=== PATIENT | female | born 1965 | race Caucasian/White ===

== ENCOUNTER 2019-05-11 10:40 | Outpatient (CLI) | payer OTHER, SELFPAY ==
--- NOTE | ~2019-05-11 | MM_ITS ---
EXAMINATION: MM screening [facility] BI w batool HISTORY: Screening mammogram TECHNIQUE: Craniocaudal and mediolateral oblique 3-D tomosynthesis images were obtained and synthetic 2-D images were generated. CAD analysis was submitted and interpreted. COMPARISON: 11/29/2016, 05/09/2015, 04/15/2015 BREAST PARENCHYMAL COMPOSITION: The breasts are extremely dense, which lowers the sensitivity of mamm ography. FINDINGS: There is no evidence of suspicious mass, calcification, or architectural distortion to sugg est malignancy in either breast. There has been no suspicious interval change. IMPRESSION: 1. No mammographic evidence of malignancy. 2. Recommend routine screening mammography in one year. BI-RADS Category 1: Negative Reviewed, dictated and finalized at location A. TH MANAGEMENT CONSULTANT
== END 2019-05-11 10:41 | disposition home or self-care (01) ==
LOC: ANHIMG 10:42
PROVIDERS: PCP Family Medicine; Visit Provider Obstetrics & Gynecology
DX: Z12.31 Encounter for screening mammogram for malignant neoplasm of breast (principal)
CPT/HCPCS: 77063; 77067

== ENCOUNTER 2019-10-21 17:40 | Emergency (ER) | payer OTHER, SELFPAY ==
--- NOTE | 2019-10-21 17:52 | ED.BACK ---
HPI - Back Pain/Injury General Chief Complaint: Abdominal Pain Stated Complaint: abd/back pain Source: patient and RN notes reviewed Mode of arrival: ambulatory Limitations: no limitations History of Present Illness HPI Narrative: The patient a non-smoker/occasional social drinker, presents with pain and emesis. Patient indicates a shorter, 6hr history of first epigastric pain associated with vomiting. This is progressed to have mostly right flank/ back pain pain now, that is mild to moderate, worse with rest, better with activity-and so colicky. No fever, frequency/hematuria/urgency/dysuria, no cough, shortness of breath, travel history, loss of taste/smell. Urinalysis remarkable for only mild/1+ microscopic hematuria. Related Data Home Medications Medication Instructions Recorded Confirmed tacrolimus 1 applic TOPICAL BID 10/21/19 10/21/19 Allergies Allergy/AdvReac Type Severity Reaction Status Date / Time lisinopril Allergy Unknown Angioedema Verified 11/07/17 17:09 Sulfa (Sulfonamide Allergy Unknown Verified 10/08/09 07:50 Antibiotics) Review of Systems Review of Systems: Narrative: General/Constitutional: No weight loss,fever Eyes: N0: Redness,discharge Ears/Nose/Throat: No: Epistaxis,ear discharge Respiratory: Denies: Hemoptysis Gastrointestinal: No Bleeding-rectal, positive vomiting Skin: No Lumps, eruption Neurologic: No Focal Weakness,Sz Hematologic: Denies: Petechiae/Purpura Psychiatric: No: Suicida ideationl All Other Systems: Reviewed and Negative PMFSH Social History Social History Smoking status: Never smoker Alcohol intake: current Drinks per week: 7 Gender identity (if verbalized by the patient): Female Comments At time of signature, agree with nursing past medical, surgical, social and family history. There is no relevant family history pertinent to the presenting complaint Exam Narrative: Exam Narrative: General Appearance: Well nourished, mild pain EYE: PERRLA, Conjunctiva clear Ears: External ear normal Nose: Normal nose Mouth/Throat: Normal appearing, Normal lips Neck: Supple Respiratory: Airway patent, No respiratory distress Cardiovascular: RRR Abdomen: Soft, R flank and RUQ tender, No massess, No organomegaly (no rebound/ surgical signs), Hyperactive bowel sounds Musculoskeletal: Full ROM Skin: Warm, Dry Neurological: A&O x3, CN II-X intact Psychiatric: Normal mood, Normal affect Course Course Emergency Course: MDM Med Decision Making DATA REVIEWED LAB: ordered & reviewed MH RECORDS: reviewed DISCUSSED: with another provider TEST : personally over-read RISKS of M &M CC/PROBLEM severe PROCEDURE low Tx OPTIONS Vital Signs Vital signs: Vital Signs Temperature 97.4 F L 10/21/19 17:54 Pulse Rate 88 10/21/19 17:54 Respiratory Rate 10/21/19 17:54 Blood Pressure 139/98 H 10/21/19 17:54 Pulse Oximetry 100 10/21/19 17:54 Temperature 97.4 F L 10/21/19 17:54 Pulse Rate 88 10/21/19 17:54 Respiratory Rate 10/21/19 17:54 Blood Pressure 139/98 H 10/21/19 17:54 Pulse Oximetry 100 10/21/19 17:54 MDM - Back Pain/Injury Lab Data Labs: Urine Glucose Negative Reference Range: Negative Urine Bilirubin Negative Reference Range: Negative Urine Ketone Negative Reference Range: Negative Urine Specific [place] 1.030 Reference Range:1.001-1.035 Urine Blood 1+ Reference Range: Negative * * Urine pH 6.0 Reference Range: 5.0-9.0 Urine Protein
[2019-10-21 17:54] VITALS: BP 139/98; PULSE 88; RESP 20; TEMP 36.3; O2SAT 100
[2019-10-21] MEDS: KETOROLAC (*BKC) 60 MG/2 ML VIAL IM (18:00)
[2019-10-21] MEDS: ONDANSETRON HCL ODT 4 MG TABLET PO (18:06)
--- NOTE | 2019-10-21 18:07 | PC.NURSE ---
Dr oGnzalez called report to [facility]
--- NOTE | 2019-10-21 18:12 | PC.NURSE ---
appropriate transfer paperwork signed
== END 2019-10-21 18:13 | disposition short-term general hospital (02) ==
PROVIDERS: Emergency Provider Emergency Medicine; PCP Family Medicine
DX: R11.10 Vomiting, unspecified (principal)
CPT/HCPCS: 81003; 96372; 99213; A9270; G0463; J1885

== ENCOUNTER 2019-10-21 18:25 | Emergency (ER) | payer OTHER, SELFPAY ==
--- NOTE | ~2019-10-21 | CT_ITS ---
EXAMINATION: CT abdomen pelvis w con DATE: 10/21/2019 20:00 INDICATION: Abdominal pain TECHNIQUE: Computed tomography (CT) of the abdomen and pelvis was performed with 100 cc Omnipaque 350 intravenous contrast. The dose-length product was 255.35 mGy-cm. Automated exposure control and iter ative reconstruction technique were employed. COMPARISON: CT dated 08/17/2014 FINDINGS: Lung bases are unremarkable. Heart size normal. No significant pleural or pericardial effus ion. Small subcentimeter hypodensity of the left hepatic lobe, most likely benign cysts or hemangioma . Small low-density lesion in the spleen measuring 13 mm, likely benign cysts. The adrenal glands and kidneys are unremarkable. Gallbladder is distended and contains stones. Enlarged uterus containing multiple hypervascular masses, likely fibroids. Nonobstructive bowel gas p attern. Small amount of free fluid in the pelvis. Retroaortic left renal vein. No acute osseous abnor mality. IMPRESSION: 1. Cholelithiasis with distended gallbladder. Cannot exclude cholecystitis. 2: Enlarged uterus containing multiple hypervascular masses, likely fibroids. Reviewed, dictated and finalized at location A.
[2019-10-21 18:27] VITALS: BP 127/88; PULSE 83; RESP 19; TEMP 36.6; O2SAT 100
[2019-10-21 18:45] LABS: Basophils Percent Auto 0.3 % (0.2-1.2); Eosinophils Percent Auto 0.4 % (0-4.4); Hematocrit 43.8 % (37.0-47.0); Immature Granulocyte Absolute 0.02 K/mm3 (0.00-0.031); Immature Granulocyte Percent A 0.2 % (0-0.5); Lymphocytes Absolute Auto 0.77 K/mm3 (0.9-3.2); Lymphocytes Percent Auto 8.1 % (18.3-44.2); Mean Corpuscular HGB Conc 34.2 g/dl (32-36); Mean Corpuscular Hemoglobin 32.4 pg (26-34); Mean Corpuscular Volume 94.6 fl (80-100); Mean Platelet Volume 9.8 fl (7.4-10.4); Monocytes Absolute Auto 0.2 K/mm3 (0.1-0.6); Monocytes Percent Auto 2.4 % (2.6-8.5); Neutrophils Absolute Auto 8.5 K/mm3 (1.3-6.7); Neutrophils Percent Auto 88.6 % (45.5-73.1); Platelet Count Result 344 k/mm3 (150-375); Red Blood Count 4.63 M/mm3 (4.2-5.4); Red Cell Distribution Width 12.3 % (11.5-14.5); White Blood Count 9.6 K/mm3 (4.5-10.0)
[2019-10-21 18:54] LABS: Anion Gap 13.7 mmol/L (7-16); Blood Urea Nitrogen 16 mg/dL (7-17); Carbon Dioxide 24 mmol/L (22-30); Chloride 101 mmol/L (98-107); Estimated CRCL calculation 71 ml/min; Estimated Glomerular Filt Rate > 60; Glucose 133 mg/dL (65-105); Potassium 3.7 mmol/L (3.4-5.0); Sodium 135 mmol/L (137-145)
[2019-10-21] MEDS: SODIUM CHLORIDE 0.9% IV 1,000 ML 999 ML IV CONT (19:44)
--- NOTE | 2019-10-21 19:46 | ED.ABDPAIN ---
HPI - Abdominal Pain General Chief Complaint: Abdominal Pain Stated Complaint: flank pain Time Seen by Provider: 10/21/19 19:27 Source: patient and family History of Present Illness HPI narrative: Sudden onset of upper abdominal pain mainly on the right side radiating to the right back started 5 hours prior to arrival, like cramps, at rest. Patient went to urgent care, received Toradol and Zofran and referred to our emergency room. Currently patient feeling better. Patient denies any aggravating or relieving factors. History of hypertension, she drinks alcohol daily, recent diagnosis of vitiligo started a new medication 1 week ago. The abdominal pain was associated with frequent multiple vomiting MD elicited complaint: abdominal pain Related Data Home Medications Medication Instructions Recorded Confirmed tacrolimus 1 applic TOPICAL BID 10/21/19 10/21/19 Allergies Allergy/AdvReac Type Severity Reaction Status Date / Time lisinopril Allergy Unknown Angioedema Verified 11/07/17 17:09 Sulfa (Sulfonamide Allergy Unknown Verified 10/08/09 07:50 Antibiotics) Review of Systems Review of Systems: Narrative: CONSTITUTIONAL: Denies fever, chills, or sweats. EYES: Denies visual changes, redness, or discharge. ENT: Denies rhinorrhea, congestion, sore throat, or otalgia. CARDIOVASCULAR: Denies chest pain, palpitations, or edema. RESPIRATORY: Denies cough or dyspnea. GASTROINTESTINAL: Denies abdominal pain, nausea, vomiting, or diarrhea. GENITOURINARY: Denies dysuria or hematuria. SKIN: Denies rash or itching. MUSCULOSKELETAL: Denies back pain, joint pain, or myalgia. NEUROLOGIC: Denies headache, numbness, or weakness. PSYCHIATRIC: Denies anxiety or depression. [facility] Past Medical History Medical History Bilateral edema of lower extremity Chest tightness Dizziness Wellness examination Family History Family History Father Hypertension Mother Patient's mother is in good health Sibling Patient's brother is in good health Social History Social History Smoking status: Never smoker Alcohol intake: current Drinks per week: 7 Gender identity (if verbalized by the patient): Female Exam Narrative: Exam Narrative: General appearance: Well-developed, well-nourished Skin: Normal color Head: Normocephalic, nontraumatic Eyes: Clear conjunctiva ENT: Oropharynx normal, ears normal, nose normal Neck: Supple, nontender Chest and respiratory: Airway patent, no respiratory distress, no accessory muscle use Heart: Regular rate/rhythm Abdomen: Soft, nontender, no organomegaly, quiet bowel sounds Vascular: Normal peripheral pulses, normal capillary refill. Musculoskeletal: Normal range of motion, nontender back Neurologic: Alert and oriented ?3, TUNNELLER is normal as tested, no gross motor deficit Course Course Emergency Course: Improved currently patient is asymptomatic, after receiving Toradol and Zofran in the urgent care DOCUMENTATION SPEC/PA Physician Supervision Dr. Chaidez: Recommended to send patient home on low fat diet, hydrocodone, call office tomorrow for appointment next week Consultations Date: 10/21/19 Time: 21:56 Vital Signs Vital signs: Vital Signs Temperature 36.6 C 10/21/19 18:27 Pulse Rate 83 10/21/19 18:27 Respiratory Rate 19 10/21/19 18:27 Blood Pressure 127/88 10/21/19 18:27 Pulse Oximetry 100 10/21/19 18:27 Temperature 36.6 C 10/21/19 18:27 Pulse Rate 83 10/21/19 18:27 Respiratory Rate 19 10/21/19 18:27 Blood Pressure 127/88 10/21/19 18:27 Pulse
[2019-10-21 19:48] LABS: Add Urine Microscopic? YES; Appearance Urine Clear (Clear); Bilirubin Urine Negative (Negative); Blood Urine 2+ (Negative); Color Urine Yellow (Yellow); Glucose Urine UA Negative (Negative); Ketones Urine Trace mg/dL (Negative); Leukocyte Esterase Ur Negative LEU/UL (Negative); Mucus Urine Moderate /lpf; Nitrate Urine Negative (Negative); Protein Urine Negative (Negative); RBC Urine 0-2 /hpf (0-2); Squamous Epithelial Cell Urine Moderate /hpf (Few); Urobilinogen Urine Negative mg/dL (<2.0); WBC Urine 0-3 /hpf
[2019-10-21 22:05] VITALS: BP 132/78; PULSE 78; RESP 18; O2SAT 99
== END 2019-10-21 22:06 | disposition home or self-care (01) ==
PROVIDERS: Emergency Medicine; Emergency Provider Emergency Medicine; PCP Family Medicine
DX: R10.11 Right upper quadrant pain (principal); K80.20 Calculus of gallbladder without cholecystitis without obstruction
CPT/HCPCS: 36415; 74177; 80048; 81001; 81025; 85025; 96360; 99284; J7030; Q9967

== ENCOUNTER 2019-10-28 00:17 | Outpatient (CLI) | payer OTHER, SELFPAY ==
[2019-10-28 18:53] LABS: SARS-CoV-2 RNA PCR Negative
== END 2019-10-28 00:18 | disposition home or self-care (01) ==
LOC: ANHCOVIDDT 00:18
PROVIDERS: PCP Family Medicine; Visit Provider Surgery
DX: Z01.812 Encounter for preprocedural laboratory examination (principal); Z20.828 Contact with and (suspected) exposure to other viral communicable diseases
CPT/HCPCS: 87635; C9803; U0003

== ENCOUNTER 2019-10-28 08:32 | Outpatient (CLI) | payer OTHER, SELFPAY ==
[2019-10-28 08:53] LABS: Hematocrit 42.6 % (37.0-47.0); Hemoglobin 14.8 g/dL (12.0-15.0); Mean Corpuscular HGB Conc 34.7 g/dl (32-36); Mean Corpuscular Hemoglobin 32.5 pg (26-34); Mean Corpuscular Volume 93.4 fl (80-100); Mean Platelet Volume 9.3 fl (7.4-10.4); Platelet Count Result 327 k/mm3 (150-375); Red Blood Count 4.56 M/mm3 (4.2-5.4); Red Cell Distribution Width 11.9 % (11.5-14.5); White Blood Count 5.3 K/mm3 (4.5-10.0)
[2019-10-28 09:05] LABS: Alanine Aminotransferase 13 U/L (4-35); Albumin Level 4.3 g/dL (3.5-5.1); Alkaline Phosphatase 66 U/L (38-126); Amylase 69 U/L (30-110); Anion Gap 12.3 mmol/L (7-16); Aspartate Amino Transferase 23 U/L (14-36); Blood Urea Nitrogen 12 mg/dL (7-17); Calcium 8.6 mg/dL (8.4-10.2); Carbon Dioxide 25 mmol/L (22-30); Chloride 101 mmol/L (98-107); Estimated Glomerular Filt Rate > 60; Glucose 94 mg/dL (65-105); Lipase 74 U/L (23-300); Potassium 3.3 mmol/L (3.4-5.0); Sodium 135 mmol/L (137-145)
== END 2019-10-28 08:33 | disposition home or self-care (01) ==
PROVIDERS: PCP Family Medicine; Visit Provider Surgery
DX: K80.10 Calculus of gallbladder with chronic cholecystitis without obstruction (principal)
CPT/HCPCS: 36415; 80053; 82150; 82248; 83690; 85027

== ENCOUNTER 2019-10-30 00:22 | Day surgery (SDC) | payer OTHER, SELFPAY ==
[2019-10-27 10:09] VITALS: BMI 21.6
[2019-10-30] VITALS (7 sets, daily range): BP systolic 108–128; BP diastolic 57–87; PULSE 72–87; RESP 12–18; TEMP 36.3–37.2; O2SAT 99–100
[2019-10-30] MEDS: KETOROLAC 15 MG/ML VIAL (*BKC) IV PUSH (10:59)
[2019-10-30] MEDS: LACTATED RINGERS 1,000 ML 30 ML IV CONT ×2 (10:59→13:29)
--- NOTE | 2019-10-30 11:31 | WPDANESEPPF ---
Anes - Initial Pre Proc Eval Procedure: Operation Date: 10/30/19 12:30 Proposed Procedures p Laparoscopic Cholecystectomy, Possible Open, Possible Intra Operative Cholangiogram - Kendall Chaidez MD Date/Time: 10/30/19 11:31 Surgeon: Kendall Chaidez MD Pre Op Diagnosis: chronic cholecystitis with cholelithiasis Patient Data Age: 54 Gender: F Height: 5 ft 5 in Weight: 58.97 kg Allergies Allergy/AdvReac Type Severity Reaction Status Date / Time Sulfa (Sulfonamide Allergy Intermediate Hives Verified 10/30/19 11:18 Antibiotics) lisinopril Allergy Unknown Angioedema Verified 10/30/19 11:18 Home Medications Medication Instructions Recorded Confirmed Type tacrolimus 1 applic TOPICAL BID 10/21/19 10/30/19 History levonorgestrel-ethinyl estradiol 1 tablet PO QPM 10/23/19 10/30/19 History 0.1 mg-20 mcg tablet amlodipine 5 mg PO QPM 10/27/19 10/30/19 History hydrochlorothiazide 12.5 mg PO QPM 10/27/19 10/30/19 History rizatriptan See Rx Instructions PO .COMPLEX PRN 10/27/19 10/30/19 History potassium chloride 20 mEq 20 meq PO DAILY #3 tablet 10/28/19 10/30/19 Rx tablet,extended release Patient hx anesthesia problems: post op nausea/vomiting (Scopolamine patch and ondanseteron given) Family hx anesthesia problems: none PMFSH Social History Social History Smoking status: Never smoker Alcohol intake: current Drinks per week: 5 Gender identity (if verbalized by the patient): Female Spiritual care concerns: No Anes - Eval Final PreProcedure Day of Procedure 10/30/19 11:31 Patient weight: normal Heart: regular rate and rhythm Lungs: clear to auscultation Airway: Mallampati scale class II Neurological: alert and oriented Last oral intake: >/= 8 hours ASA classification: II Emergent: no Anesthetic plan: proceed Anesthesia type and monitoring: general ETT and standard monitoring Informed Consent: The patient's anesthetic plan and its attendant risks and benefits were discussed with the patient/family/POA. Questions were solicited and answers provided to the satisfaction of the patient/family/POA.
[2019-10-30] MEDS: SCOPOLAMINE 1.5 MG PATCH TRANSDERM (11:50)
[2019-10-30] MEDS: ONDANSETRON INJ 4 MG/2 ML VIAL IV PUSH (11:50)
--- NOTE | 2019-10-30 11:57 | WPDHPUPDATE1 ---
History and Physical Update Update Date/Time: 10/30/19 11:57 History and Physical has been reviewed, including an updated exam of the patient. There are NO changes in the patient's condition. Risks, benefits, and alternatives have been discussed and questions answered. Patient agrees to proceed with procedure.
[2019-10-30] MEDS: ceFAZolin 2 GM/D5W 50 ML 2 GM/50 ML BAG IVPB (12:18)
[2019-10-30] MEDS: BUPIVACAINE/EPINEPHRINE 0.5% 30 ML VIAL INFILTRATE (12:57)
--- NOTE | 2019-10-30 13:25 | SUR.OPER ---
EBL:10cc
--- NOTE | 2019-10-30 13:26 | P.OP_ITS ---
Procedure Note - Detailed Date of procedure: 10/30/19 Pre-op diagnosis: chronic cholecystitis with cholelithiasis Chronic Cholecystitis with Cholelithiasis Post-op diagnosis: same Procedure performed: Laparoscopic Cholecystectomy Description of procedure: Patient was seen preoperatively in the holding area and risks, benefits and alternatives confirmed. Patient was taken to the operating room and general anesthesia was induced. A time out was then preformed with the surgery team confirming patient and site of surgery. The abdomen was prepped and draped in the usual sterile fashion. Incision was made just below the umbilicus with an 11 blade knife. I placed 2 stay sutures of O- Vicryl on either side of the mid- line fascia beneath the umbilicus and was then able to slide in the Dey cannula through the fascial defect into the peritoneum. First under low flow and then under high flow the abdomen was insufflated with carbon dioxide never exceeding a pressure of 14. Three 5 mm trocars were then introduced under direct vision. The following trocars were introduced under direct vision: a 5 mm in the epigastrium and two 5 mm trocars along the right costal margin laterally in the subcostal area. There was Just a few filmy omental adhesions to the underside of the gallbladder. these were taken down without difficulty with sharp scissors there was not much bleeding with this. I then carefully used the L-shaped cautery and the [place] dissector to dissect out the triangle of [place]. I then was able to dissect out both the cystic duct and cystic artery and identify a window of safety. The gall bladder was grasped and the cystic duct and artery were dissected free and clipped with an 5 mm endo-clip track inspecting supervisor. The cystic duct and artery were clipped with use of 2 clips on the patient's side 1 on the gallbladder side utilizing a 5 mm endoclip- track inspecting supervisor. The cystic duct was then transected. The cystic artery was also transected at this point. The gall bladder was removed using electrocautery and then removed from the abdomen using a large 10 mm grasper via the umbilical incision. The trocars were removed visualizing hemostasis and the remaining gas evacuated. The large trocar site at the umbilicus was closed with use of the 2 stay sutures of 0 Vicryl mentioned above and also a figure of 8 O-Vicryl suture. The 2 stay sutures mentioned above on either side of the fascia were also tied together to help approximate this midline fascia. Further local anesthetic was placed into each incision for postop pain control. The skin incisions were closed with subcuticular suture of 4-0 Monocryl. Surgical glue then was applied to all the incisions. Patient tolerated the procedure well was taken to the recovery room in good condition. Anesthesia: GETA Surgeon: Kendall Chaidez MD Meeting Facilitator: Jeannine CAMPUZANO, OR rn first assistant Estimated blood loss (mL): 10 Drains: No Packing: No Pathology: yes (Gallbladder) Complications: No immediate complications Condition: stable Disposition: PACU Findings: There were palpable stones within the gallbladder upon removal. No significant inflammation was obvious at the time of surgery. Dissection was not difficult.
== END 2019-10-30 15:21 | disposition home or self-care (01) ==
PROVIDERS: PCP Family Medicine; Visit Provider Surgery
PROC: 0FT44ZZ Resection of Gallbladder, Percutaneous Endoscopic Approach (ICD-10-PCS; CPT 47562; principal; 2019-10-30 12:30)
DX: K80.10 Calculus of gallbladder with chronic cholecystitis without obstruction (principal); K40.20 Bilateral inguinal hernia, without obstruction or gangrene, not specified as recurrent
CPT/HCPCS: 47562; 88304; A9270; J0690; J1100; J1885; J2250; J2405; J2704; J2710; J3010; J7120; Q9966

== ENCOUNTER 2020-10-10 08:06 | Outpatient (CLI) | payer OTHER, SELFPAY ==
--- NOTE | ~2020-10-10 | MM_ITS ---
EXAMINATION: MM screening [facility] w batool HISTORY: Screening TECHNIQUE: Craniocaudal and mediolateral oblique 3-D tomosynthesis images were obtained and synthetic 2-D images were generated. CAD analysis was submitted and interpreted. COMPARISON: Comparison to multiple prior studies sequentially, with oldest reviewed study dated 02/23. BREAST PARENCHYMAL COMPOSITION: The breasts are extremely dense, which lowers the sensitivity of mamm ography FINDINGS: There is no evidence of suspicious mass, calcification, or architectural distortion to sugg est malignancy in either breast. There has been no suspicious interval change. IMPRESSION: 1. No mammographic evidence of malignancy. 2. Recommend routine screening mammography in one year. BI-RADS Category 1: Negative Reviewed, dictated and finalized at location A.
== END 2020-10-10 08:07 | disposition home or self-care (01) ==
LOC: ANHIMG 08:07
PROVIDERS: PCP Family Medicine; Visit Provider Obstetrics & Gynecology
DX: Z12.31 Encounter for screening mammogram for malignant neoplasm of breast (principal)
CPT/HCPCS: 77063; 77067

== ENCOUNTER 2020-11-22 16:45 | Outpatient (CLI) | payer OTHER, SELFPAY ==
--- NOTE | ~2020-11-22 | XR_ITS ---
EXAMINATION: XR hip LT min 3V w AP pelvis DATE: 11/22/2020 17:07 INDICATION: Left hip pain. TECHNIQUE: An anteroposterior view of the pelvis and 3 views of left hip were obtained. COMPARISON: CT abdomen and pelvis 10/21/2019 FINDINGS: Bone alignment is normal. No fracture. Joint spaces are well maintained. IMPRESSION: 1. Normal pelvis and left hip. Reviewed, dictated and finalized at location A.
== END 2020-11-22 16:46 | disposition home or self-care (01) ==
LOC: ANHIMG 16:50
PROVIDERS: PCP Family Medicine; Visit Provider Physician Assistant
DX: M25.552 Pain in left hip (principal)
CPT/HCPCS: 73502

== ENCOUNTER 2022-11-10 07:58 | Outpatient (CLI) | payer OTHER, SELFPAY ==
--- NOTE | ~2022-11-10 | MM_ITS ---
EXAMINATION: MM screening [facility] w batool HISTORY: Screening mammogram TECHNIQUE: Craniocaudal and mediolateral oblique 3-D tomosynthesis images were obtained and synthetic 2-D images were generated. CAD analysis was submitted and interpreted. COMPARISON: 10/10/2020, 05/11/2019 bilateral screening mammogram examinations BREAST PARENCHYMAL COMPOSITION: The breasts are heterogeneously dense, which may obscure small masses . FINDINGS: Multiple new calcifications are noted in the posterior central left breast. There is left n ipple retraction. Diagnostic left mammogram including magnification views and left breast ultrasound examination are recommended. Otherwise no suspicious mass, architectural distortion, malignant calcification, skin thickening or r etraction of either breast is noted. IMPRESSION: 1. New microcalcifications, posterior central left breast, left nipple retraction 2. Diagnostic left mammogram and left breast ultrasound examination are recommended BI-RADS Category 0: Incomplete: Needs additional imaging evaluation. Reviewed, dictated and finalized at location A. IMPRESSION: 1. New microcalcifications, posterior central left breast, left nipple retracti on 2. Diagnostic left mammogram and left breast ultrasound examination are recomme nded BI-RADS Category 0: Incomplete: Needs additional imaging evaluation.
== END 2022-11-10 07:59 | disposition home or self-care (01) ==
LOC: ANHIMG 07:59
PROVIDERS: PCP Family Medicine; Visit Provider Obstetrics & Gynecology
DX: Z12.31 Encounter for screening mammogram for malignant neoplasm of breast (principal); R92.8 Other abnormal and inconclusive findings on diagnostic imaging of breast
CPT/HCPCS: 77063; 77067

== ENCOUNTER 2022-12-12 12:47 | Outpatient (CLI) | payer OTHER, SELFPAY ==
--- NOTE | ~2022-12-12 | MM_ITS ---
EXAMINATION: MM diagnostic [facility] w batool HISTORY: Follow-up left breast calcifications TECHNIQUE: Additional 3-D tomosynthesis images of the left breast were performed and synthetic 2-D im ages were generated. CAD analysis was submitted and interpreted. COMPARISON: Comparison to multiple prior studies sequentially, with oldest reviewed study dated 04/15. BREAST PARENCHYMAL COMPOSITION: The breasts are extremely dense, which lowers the sensitivity of mamm ography FINDINGS: There are benign-appearing calcifications in the posterior central left breast. There are n o suspicious masses or architectural distortion. No evidence for malignancy. There is chronic inversi on of the left nipple. IMPRESSION: 1. No evidence for malignancy in the left breast. 2. Routine yearly screening mammogram and regular clinical breast examination are recommended. BI-RADS Category 2: Benign finding(s). Reviewed, dictated and finalized at location A. IMPRESSION: 1. No evidence for malignancy in the left breast. 2. Routine yearly screening mammogram and regular clinical breast examination a re recommended. BI-RADS Category 2: Benign finding(s).
== END 2022-12-12 12:48 | disposition home or self-care (01) ==
LOC: ANHIMG 12:47
PROVIDERS: PCP Family Medicine; Visit Provider Obstetrics & Gynecology
DX: R92.8 Other abnormal and inconclusive findings on diagnostic imaging of breast (principal)
CPT/HCPCS: 77061; 77065; G0279